=== PATIENT | female | born 1980 | race Caucasian/White ===

== ENCOUNTER → 2016-05-20 17:35 | Observation (INO) ==
--- NOTE | 2016-05-20 16:20 | OB/GYN History & Physical ---
Date of Encounter: 05/20/16 Time of Encounter: 16:15 Assessment and Plan (1) ROM (rupture of membranes), premature Current visit: Yes Status: Acute Evaluation for concern of PROM. Nitrizine (-) Ferning (-) Pooling (-) No patient perceived contractions, no pelvic pain. External TOCO: no contractions noted. External NST: reactive, HR in the 120-150's. Patient does not have rupture of membranes and is not in labor per the above evaluation. Will discharge home with routing follow-up with her primary OB. Qualifiers: PROM gestational age: -third trimester Qualified Code(s): O42.913 - premature rupture of membranes, unspecified as to length of time between rupture and onset of labor, third trimester History of Present Illness Chief complaint: concern for fluid leakage HPI: Ms. Polanco is a 35 year old female presents by personal vehicle from [facility] with concern regarding fluid leaking. Patient is at 28w 3d. She noticed fluid leaking around her toilet 3 days ago. The recruitment specialist said it was body fluid (i.e. urine). Yesterday, she noticed her underwear was damp after urination. In speaking with her OB, Dr. Osborne, has previously mentioned monitoring for fluid leakage. The patient is concerned this could be fluid but notes it could be urine. No bleeding. No gush of fluids. No pain. She is not feeling any contractions. She has anxiety causing abdominal upsetting when driving. No fever, chills, nausea, vomiting. Last intercourse was yesterday. 35yo female 28w 3d OB: Dr. Osborne. Past Med Surg Social Fam HX - Past Medical History Medical history: no medical history Psychiatric history: other - Social History Smoking Status: Never smoker Smokeless Tobacco Status: No Alcohol use: none Drug use: none Obstetrical History - Pregnancies : 1 Para: 0 Term: 0 : 0 Ab's: 0 Livin Medications and Allergies Omeprazole 20 mg PO DAILY 03/05/16 [History] Pnv#75/Iron Fum/FA/Om3/Dha/Epa [Daily Combo Pack] 1 mg PO DAILY [History] Allergies No Known Allergies Allergy (Verified 03/05/16 21:11) Review of System OB - Constitutional Constitutional ROS IM: no chills, no fever(s), no headache(s), no malaise - Respiratory Respiratory: no cough, no dyspnea - Gastrointestinal Gastrointestinal: no constipation, no heartburn, no loose stools, no nausea, no vomiting - Genitourinary Genitourinary: no abnormal vaginal bleeding, no difficulty urinating, no flank pain, no pelvic pain, no urinary hesitancy, no urinary incontinence, no urinary urgency - Muscloskeletal Musculoskeletal: no back pain Exam - Constitutional Constitutional: well developed, well nourished, no acute distress, obese - HEENT HEENT: Normocephaly, Mucus Membranes Moist - Neck Neck exam: normal inspection, supple - Lungs Respiratory exam: CTAB - Cardiovascular Cardiovascular exam: RRR, +S1, +S2 - Abdomen Abdomen: Present: bowel sounds normal, gravid, non tender. Absent: guarding noted - Extremities Extremities exam: normal capillary refill, normal inspection Results All other labs normal.
== END | disposition home or self-care (01) ==
LOC: 1NENULAB
PROVIDERS: ADMIT Student in an Organized Health Care Education/Training Program; ATTEND Student in an Organized Health Care Education/Training Program

== ENCOUNTER → 2016-07-24 13:30 | Observation (INO) ==
[2016-07-24 12:07] LABS: Basophils % 0.4 %; Eosinophils # 0.2 K/mcL (0.0-0.6); Eosinophils % 1.4 %; Hematocrit 39.4 % (35.3-44.9); Hemoglobin 13.2 g/dL (11.5-15.4); Immature Granulocytes % 1.3 % (0-4); Immature Platelets 3.6 % (1.1-6.1); Lymphocytes # 2.1 K/mcL (0.6-4.6); Lymphocytes % 19.2 %; Mean Corpuscular HGB Conc 33.5 g/dL (31.6-35.5); Mean Corpuscular Hemoglobin 27.7 pg (28.0-33.3); Mean Corpuscular Volume 82.6 fL (83.0-100.0); Mean Platelet Volume 10.1 fL (9.4-12.4); Monocytes # 0.9 K/mcL (0.0-1.3); Neutrophils # 7.4 K/mcL (1.6-8.9); Platelet Count 306 K/mcL (140-400); Red Blood Count 4.77 M/mcL (3.82-4.97); Red Cell Distribution Width 14.6 % (11.5-14.5); Segmented Neutrophils % 69.7 %
[2016-07-24 12:20] LABS: Alanine Aminotransferase 21 Units/L (0-55); Aspartate Amino Transferase 19 Units/L (5-34); BUN/Creatinine Ratio 17 (6-26); Blood Urea Nitrogen 9 mg/dL (7-20); Lactate Dehydrogenase 148 Units/L (159-327); Uric Acid 4.7 mg/dL (2.6-6.0); eGFR For African Americans > 60 (> 60); eGFR For Non-African Americans > 60 (> 60)
[2016-07-24 12:30] VITALS: BP 137/85
--- NOTE | 2016-07-24 13:04 | Discharge Summary ---
Date of Encounter: 07/24/16 Time of Encounter: 13:04 - Discharge Diagnosis (1) 37 weeks gestation of Priority: Primary Status: Acute Comments: admitted for observation (2) Rh negative status during Priority: Secondary Status: Acute Comments: Type and screen drawn Rhogam injection given prior to discharge. Patient had not received Rhogam during . Qualifiers: Trimester: third trimester Qualified Code(s): O09.893 - Supervision of other high risk pregnancies, third trimester (3) Elevated BP without diagnosis of hypertension Priority: Secondary Status: Acute Comments: PIH labs and BP within normal limits. - Discharge Medications Home Medications: Omeprazole 20 mg PO DAILY 03/05/16 [History] Pnv#75/Iron Fum/FA/Om3/Dha/Epa [Daily Combo Pack] 1 mg PO DAILY [History] Allergies/Adverse Reactions: Allergies No Known Allergies Allergy (Verified 07/24/16 12:31) Data Procedures and tests throughout hospitalization: Laboratory Tests 07/24/16 07/24/16 11:58 11:58 WBC 10.7 RBC 4.77 Hgb 13.2 Hct 39.4 MCV 82.6 L MCH 27.7 L MCHC 33.5 RDW 14.6 H Plt Count 306 MPV 10.1 Immature Gran % 1.3 Seg Neutrophils % 69.7 Lymphocytes % 19.2 Monocytes % 8.0 Eosinophils % 1.4 Basophils % 0.4 Neutrophils # 7.4 Lymphocytes # 2.1 Monocytes # 0.9 Eosinophils # 0.2 Basophils # 0.0 Immature Plt Fraction 3.6 BUN 9 Creatinine 0.54 L Est GFR ( Amer) > 60 Est GFR (Non-Af Amer) > 60 BUN/Creatinine Ratio 17 Uric Acid 4.7 AST 19 ALT 21 Lactate Dehydrogenase 148 L Labs on day of discharge: Labs from last 24 hours 07/24/16 07/24/16 11:58 11:58 WBC 10.7 RBC 4.77 Hgb 13.2 Hct 39.4 MCV 82.6 L MCH 27.7 L MCHC 33.5 RDW 14.6 H Plt Count 306 MPV 10.1 Immature Gran % 1.3 Seg Neutrophils % 69.7 Lymphocytes % 19.2 Monocytes % 8.0 Eosinophils % 1.4 Basophils % 0.4 Neutrophils # 7.4 Lymphocytes # 2.1 Monocytes # 0.9 Eosinophils # 0.2 Basophils # 0.0 Immature Plt Fraction 3.6 BUN 9 Creatinine 0.54 L Est GFR ( Amer) > 60 Est GFR (Non-Af Amer) > 60 BUN/Creatinine Ratio 17 Uric Acid 4.7 AST 19 ALT 21 Lactate Dehydrogenase 148 L Date of admission: 07/24/16 11:39 Primary care physician: Tamiko Cordova Discharging clinician: Ana Mittal Anticipated date of discharge: 07/24/16 - Patient Status Disposition: Home, Self-Care Condition: Good Functional capacity at discharge: independent ambulation - Discharge Instructions Follow Up With: Luis Rebolledo MD [Primary Care Provider] - Machelle Osborne MD [Partnered Physician] - Additional Instructions: LABOR AND DELIVERY DISCHARGE INSTRUCTIONS Signs and Symptoms to be Reported to your Doctor Immediately: * Sudden gush, continuous or intermittent lead of fluid from vagina (note the time of gush and color of fluid) * Onset of bright red vaginal bleeding with or without pain (if you had a vaginal exam during this visit you may notice some dark red spotting. This is normal.) * Lower abdominal cramping or backache that is premenstrual-like feeling. * More than 6 contractions in one hour. * Burning during urination, having to urinate more frequently or pain in your mid-back. * A change in the baby's activity. This could be an increase or decrease in activity. * Severe headache which does not go away with tylenol. * Sudden swelling in the face, hands, arms and/or legs. * Upper abdominal pain - sometimes associated with heartburn or nausea and is not relieved by Maalox, Mylanta or Tums. * Dizziness or blurred vision or visual disturbances (seeing stars/lights). * Kick Counts One hour after a meal, lay down on one side in a quiet place. Count the number of tone the baby moves during an hour. If less than 6 movements, notify your physician. Diet: *Force fluids - 8-10 tall glasses of fluid per day. May include popsicles and jello. 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 Upon evaluation it was found patient had not received Rhogam at 28 weeks gestation. Type and screen was drawn and Rhogam given prior to discharge. NST today was reactive baseline 125 bpm. Time Attestation: Total time spent providing and/or coordinating discharge services: Time Spent: Less than 30 minutes Exam - Constitutional Vitals: Temp Pulse Resp BP 97.2 F L 71 20 137/85 07/24/16 12:15 07/24/16 12:15 07/24/16 12:15 07/24/16 12:15 General appearance IM: A&O X 3, pleasant, obese, answers questions appropriately - Respiratory Respiratory exam: Present: CTAB - Cardiovascular Cardiovascular exam IM: Present: RRR, +S1, +S2 - GI/Abdominal GI/Abdominal exam IM: normal bowel sounds - Extremities Exam Extremities exam IM: Present: full ROM, normal inspection - Neurological Exam Neurological exam: alert, oriented X3, reflexes normal - Other Additional findings: PUPPs rash noted on extremities only. - VTE Reasons for not Prescribing Prophylaxis: Treatment not Indicated - Low risk for VTE
[2016-07-24 13:28] LABS: Creatinine,Urine 23 mg/dL
[~2016-07-24 13:30] MED LIST: Rho Immune Globulin 1,500 UNIT SYRINGE IM ONE
== END | disposition home or self-care (01) ==
LOC: 1NENULAB
PROVIDERS: ADMIT Obstetrics & Gynecology; ATTEND Obstetrics & Gynecology

== ENCOUNTER 2016-08-08 05:00 | Inpatient (IN) ==
[2016-08-08] MEDS ORDERED: Famotidine 20 MG/2 ML VIAL IVP PRN (05:41)
[2016-08-08] MEDS ORDERED: Naloxone 0.4 MG/ML INJ IVP PRN (05:41)
[2016-08-08] MEDS ORDERED: Penicillin G Potassium 5,000,000 UNIT in D5% in Water (Mini-Bag+) 100 ML IVPB ONE (05:41)
[2016-08-08] MEDS ORDERED: Ondansetron 4 MG/2 ML VIAL IVP PRN (05:41)
[2016-08-08] MEDS ORDERED: Metoclopramide 10 MG/2 ML VIAL IVP PRN (05:41)
[2016-08-08] MEDS ORDERED: *HR* Nalbuphine 20 MG/ML AMPUL IVP PRN (05:44)
[2016-08-08] MEDS ORDERED: Ringers Solution, Lactated 1,000 ML IVC SCH (05:45)
[2016-08-08 06:01] LABS: Basophils % 0.4 %; Eosinophils # 0.2 K/mcL (0.0-0.6); Eosinophils % 1.7 %; Hematocrit 40.3 % (35.3-44.9); Hemoglobin 13.6 g/dL (11.5-15.4); Immature Granulocytes % 1.5 % (0-4); Immature Platelets 3.8 % (1.1-6.1); Lymphocytes # 2.2 K/mcL (0.6-4.6); Mean Corpuscular HGB Conc 33.7 g/dL (31.6-35.5); Mean Corpuscular Hemoglobin 27.8 pg (28.0-33.3); Mean Corpuscular Volume 82.2 fL (83.0-100.0); Mean Platelet Volume 9.9 fL (9.4-12.4); Monocytes # 0.8 K/mcL (0.0-1.3); Monocytes % 7.6 %; Neutrophils # 7.7 K/mcL (1.6-8.9); Platelet Count 273 K/mcL (140-400); Segmented Neutrophils % 68.8 %
[2016-08-08] MEDS ORDERED: miSOPROStol 25 MCG TABLET PO SCH (08:00)
--- NOTE | 2016-08-08 08:28 | History & Physical Report ---
Date of Encounter: 08/08/16 Time of Encounter: 08:27 24 Hour HP Update - Instructions Instructions: If the History and Physical is less than 30 days old and was completed prior to A.M. admission and or procedure and has NOT been updated on calendar day of procedure please complete this update prior to performing procedure. - Update Patient reports changes in Medical Condition: No Changes in examination, assessment, or condition: No Changes in Medication: No Preop tests/diagnostics Reviewed: Yes Surgery Remains Indicated: Yes Consent for Planned Operative Procedure(s) Verified: Yes - Pre-Operative Checklist Preoperative Checklist Indicated: No Prophylactic Antibiotic Ordered: Yes Home Medications Include Beta Sary: No Beta Sary Taken Today (Day of Surgery): No Beta Sary Taken Yesterday (Day Prior to Surgery): No Is VTE Prophylaxis Indicated?: NO
--- NOTE | 2016-08-08 08:31 | OB Labor Progress Note ---
Date of Encounter: 08/08/16 Time of Encounter: 08:29 Labor Progress Note - Subjective Subjective: The patient is comfortable with contractions. She denies any vaginal bleeding, loss of fluid. Fetus has been active. She is here for induction. A Molina for cervical ripening was discussed yesterday and planned. Patient is aware and agrees with plan of care - Vital Signs Vital Signs: Afebrile, vital signs stable - Cervix Cervix: 1-2/70/-1, mid position and soft - Heart Tones Heart Tones: 140s, CAT 1 - [place]: Contractions are regular, patient status post 50 g of oral Cytotec about 0700 - Interventions Interventions: 39 weeks 6 days IUP with advanced maternal age, uterine fibroids and obesity for induction of labor per [facility] recommendations - Plan Plan: Molina catheter with 30 mL balloon inserted and cervix without difficulty using a guidewire. Patient tolerated well. Continue induction of labor with anticipation of vaginal delivery
[2016-08-08] MEDS: Penicillin G Potassium 2,500,000 UNIT in D5% in Water 100 ML IVPB SCH ×3 (10:18→19:32)
--- NOTE | 2016-08-08 12:54 | OB Labor Progress Note ---
Date of Encounter: 08/08/16 Time of Encounter: 12:52 Labor Progress Note - Subjective Subjective: Pt comfortable with Nubain at this time. - Cervix Cervix: 4/80/-1 - Heart Tones Heart Tones: Moderate variability, +accels, occassional variable decelerations. - Saxis Saxis: mild and irregular - Interventions Interventions: AROM for small amount clear fluid. IUPC placed in anticipation of possible amnioinfusion if needed for variable decelerations. Pt repositioned to right lateral. - Plan Plan: Continue to monitor. Will start amnioinfusion if needed for variable decelerations. Will augment labor with pitocin. Epidural if requested. Anticipate . POC discussed with Dr. Osborne.
[2016-08-08] MEDS ORDERED: Oxytocin 20 units/ LR 1000 mL 20 UNIT/1,000 ML BAG IVC SCH (13:00)
[2016-08-08] MEDS ORDERED: EPHEDrine 50 MG/ML VIAL IVP PRN (18:16)
[2016-08-08] MEDS ORDERED: Ringers Solution, Lactated 500 ML IVC ONE (18:16)
[2016-08-08] MEDS ORDERED: Epidural Premix (fent/bupiv) 110 ML EP ONE (18:26)
[2016-08-08] MEDS ORDERED: Epidural Premix (fent/bupiv) 110 ML EP SCH (18:30)
--- NOTE | 2016-08-08 19:28 | Anesthesia Evaluation PreOp ---
Date of Encounter: 08/08/16 Time of Encounter: 19:26 - Past History Planned Operation: SUSIE Cardiac History: Denies any Significant Hx Pulmonary History: Denies Any Significant HX BAG TESTER History: Other (Bipolar, OCD) Other Medical History: Denies Any Significant HX Anesthesia History: No Prior Anesthetic Complications Alcohol Use: none Drug use: none Medications and Allergies Omeprazole 20 mg PO DAILY 03/05/16 [History] Pnv#75/Iron Fum/FA/Om3/Dha/Epa [Daily Combo Pack] 1 mg PO DAILY [History] Allergies No Known Allergies Allergy (Verified 08/08/16 05:40) - Meds/Allergy Pre-op Review Medications Reviewed: Yes Allergies Reviewed: Yes Beta Blockers on Current Med List: No Anesthesia Results - Labs 08/08/16 05:46 Anesthesia Exam Height: 5'5" Weight: 113 kg NPO (# of Hours): 6 Pain Scale: 8 Pain Scale Used: Numeric (1 - 10) - HEENT Pupil (Motor): Pupils equal Mallampati: III Teeth: Normal Oral Opening: Greater than 3 - BAG TESTER LOC: Oriented BAG TESTER Motor: Normal RUE, Normal LUE, Normal RLE, Normal LLE, Normal Face BAG TESTER Sensory: Normal: RUE, LUE, RLE, LLE, Face - Cardiac Rhythm: Regular Murmur: None JVD: No Carotid Bruit: No - Pulmonary Breath Sounds: bilateral Clear Respiratory Effort: Symmetrical Anesthesia Assess/Plan ASA Score: 3 (M.O BMI 41.7) Modified Vidya Scale for Level of Consciousness: Cooperative, oriented, and tranquil Anesthetic Plan: General (plan b), Regional (plan a) Autologous Blood: Yes Monitoring Plan: Standard Monitors
--- NOTE | 2016-08-08 19:30 | Anesthesia Procedures ---
Date of Encounter: 08/08/16 Time of Encounter: 19:28 Procedures: Anesthesia - Epidural/Spinal Patient ID/Chart reviewed: Yes Patient examined: Yes OB Eval: Gestational age: 39.6 OB Eval: : 1 OB Eval: Hx Para: 0 OB Eval: Dilated at (cm): 4 OB Eval: Contractions: Non-stressed pattern Consent Obtained: Yes Supplemental Oxygen: None/Room Air Site Prep: Aseptic Technique, Sterile prep and drape, Povidone-Iodine 1% Patient position: upright Local Anesthetic: Lidocaine 1% Amount of Local Anesthetic used: 3 Touhy Needle Gauge: 18 Touhy Needle Depth (cm): 9 Catheter Depth at Skin (cm): 18 Test Dose (1.5% Lido + Epi): Volume given (mls): 5 Test Dose Result: Negative Loading Dose: Other: 5ml of epidural premix pharm bag solution Loading Dose Administered: Thru Catheter Infusion Med: 0.125% Bupivacaine w/ 2 mcg/ml Fentanyl Infusion Rate (mls/hr): 12 ([id number] [id number]) Catheter Secured in Place: Tegaderm, Tape Interspace Used: L3-L4 Loss of Resistance (ALISON): Yes Blood: No CSF: No Paresthesia: No Procedure: pt tolerated procedure well. no complications. vss. 143/65 hr 91 148/71 hr 92 fhr stable
--- NOTE | 2016-08-08 19:36 | OB Labor Progress Note ---
Date of Encounter: 08/08/16 Time of Encounter: 19:32 Labor Progress Note - Subjective Subjective: The patient is comfortable after her epidural - Vital Signs Vital Signs: Afebrile, vital signs stable - Cervix Cervix: 5-6/80/-1, vertex - Heart Tones Heart Tones: 130s baseline, CAT1 - [place]: Contractions every 3-4 minutes x 30-50mmHg on 5 mU pit - Interventions Interventions: 39 week 6 day IUP, AMA, uterine fibroids, obesity for induction of labor, status post epidural - Plan Plan: Continue current management, anticipate vaginal delivery
[2016-08-08] MEDS ORDERED: *HR* FentaNYL (PF) 100 MCG/2 ML VIAL ONE (20:11)
[2016-08-08] MEDS ORDERED: Lidocaine -MPF 2% 5 ML VIAL ONE (20:12)
--- NOTE | 2016-08-08 20:17 | Anesthesia Progress Note ---
Date of Encounter: 08/08/16 Time of Encounter: 20:16 Anesthesia Note - Note Note: 08/08/16 20:16 called for increased pain during contractions. bolus given of 100mcg fentanyl, with 2%lidocaine with epi. vss. fhr stable. pump increased to 15ml/hr
[2016-08-08] MEDS ORDERED: ceFAZolin 3,000 MG in D5% in Water 100 ML IVPB ONE (21:51)
[2016-08-08] MEDS ORDERED: Lidocaine/EPI 1:200k 2% PF 20 ML VIAL ONE (21:52)
[2016-08-08] MEDS ORDERED: Chloroprocaine/PF 20 ML VIAL INFILT ONE (21:52)
[2016-08-08] MEDS ORDERED: MetroNIDAZOLE 500 MG/100 ML 500 MG/100 ML BAG IVPB STA (21:55)
[2016-08-08] MEDS ORDERED: *HR* Morphine Sulfate/PF 5 MG/10 ML AMPUL ONE (22:24)
[2016-08-08] MEDS ORDERED: Ondansetron 4 MG/2 ML VIAL ONE (22:33)
[2016-08-08] MEDS ORDERED: Ringers Solution, Lactated 1,000 ML ONE (22:51)
--- NOTE | 2016-08-08 23:25 | OB Labor Progress Note ---
Date of Encounter: 08/08/16 Time of Encounter: 21:50 Labor Progress Note - Subjective Subjective: Patient comfortable with epidural. Noted to have variable decelerations. Internals placed and decelerations appeared to be late. - Vital Signs Vital Signs: Afebrile, vital signs stable - Cervix Cervix: 6/80/-1 - Heart Tones Heart Tones: Category 2 with late deceleration, not persistent - [place]: Contractions every 3-4 minutes on 5 milliunits of pit 30-50 mmHg. Pitocin stopped after late deceleration noted - Interventions Interventions: 39 week 6 day IUP for induction of labor due to AMA, obesity, uterine fibroids, [place] 5.8, grade 2-3 placenta with category 2 heart rate tracing and failure to progress with arrest at 6 cm - Plan Plan: Discussed findings with patient. Recommended proceeding to primary section. Patient gave informed consent after risks and benefits were reviewed
--- NOTE | 2016-08-08 23:35 | OB/GYN Procedure Note ---
Section - Date of procedure: 08/08/16 Preop diagnosis: arrest of dilation (6cm), category 2 FHT tracing, other ( Uterine fibroids) Post-op diagnosis: same (OP) Procedure: section, primary low transverse Surgeon: Machelle Osborne Estimated blood loss (cc): 500 Anesthesiologist: Yoni Arriola Web Development Director: Rashawn Longo Anesthesia Type: Epidural section complications: none Disposition: L&D Recovery Room Specimens: Placenta, Cord segment, Cord blood - (s) Infant A Infant Delivery Date: 08/08/16 Infant Delivery Time: 22:22 Presentation: vertex Position: LOP Route of delivery: other Gender: Female Viability: Viable Pounds: 7 Ounces: 4 at 1 minute: 8 at 5 minutes: 8 Specimens collected: cord blood Placenta: spontaneous, uterine exploration Cord: 3 umbilical vessels, other (Cord around ankle) - Narrative Narrative: Patient was taken to the operating room and prepped and draped in usual sterile fashion. EPCDs were placed. Timeout was completed. Anesthesia was tested to be adequate. A Pfannenstiel skin incision was made with a scalpel and sharply dissected down to the fascia. The fascia was incised in the midline and extended bilaterally with scissors. 2 straight [place] clamps were placed on the inferior fascial edge and the fascia was bluntly and sharply dissected away from the rectus muscles. This was repeated superiorly. The rectus muscles were then bluntly and sharply bissected in the midline. Peritoneum was bluntlyly entered and extended superiorly and inferiorly. Bladder blade was placed to protect the bladder. Vesicouterine peritoneum was incised and reflected inferiorly. Bladder blade was replaced to protect the bladder. A low transverse incision was then made with a scalpel and sharply dissected down to the amnion. This was then bluntly extended bilaterally. The amnion was then bluntly entered. This was followed by the vertex delivery of a vigorous female infant weighing 7#4oz, with Apgars of 8 at 1 minute and 8 at 5 minutes. The was suctioned on the operating field, cord was clamped and cut after a delay, and the infant was handed to the nursery care team. Placenta was spontaneously extracted intact. Uterine cavity was digitally inspected and then wiped clean with a moist lap sponge. Clamps were placed on the uterine angles and the uterine incision was closed using 0 Vicryl suture in a running locking fashion. A second imbricating layer completed the uterine closure. Good hemostasis was achieved this time by placing uvinzp-ah-hadei sutures using 0 Vicryl in the midline. Gloves were changed. Tubes and ovaries were inspected and found to be grossly normal. Subserosal fibroids were noted both anteriorly and posteriorly. The largest being about 2 cm in diameter and 4 cm in length. The abdomen was irrigated copiously with sterile water. Peritoneal edges and rectus muscles were inspected and hemostasis achieved. The fascia was then closed using an 0 PDS loop in a running, nonlocking fashion. Subcutaneous tissue was irrigated with sterile water and good hemostasis was achieved. Skin was closed with 4-0 Monocryl in a subcuticular fashion. All sponge and instrument counts were correct at the end of the procedure. The Molina was noted to be draining clear yellow urine at the end of the procedure. The patient was taken to the recovery room in stable condition.
[2016-08-08] MEDS ORDERED: *HR* HYDROmorphone (PF) 1 MG/ML SYRINGE IVP PRN ×2 (23:41→23:45)
[2016-08-08] MEDS ORDERED: *HR* Morphine 2 MG/ML SYRINGE IVP PRN (23:45)
--- NOTE | 2016-08-08 23:45 | Anesthesia Evaluation Post Op ---
Date of Encounter: 08/08/16 Time of Encounter: 23:45 - Lungs Lungs: Clear Ascult./Percussion - Airway Airway: Non-obstructed - Cardiovascular Regular Rate, Baseline Rhythm - Mental Status Mental Status: Alert & Oriented, Answers Appropriately - Pain Pain Scale: 3 ("mild discomfort") Pain Scale used: Numeric (1 - 10) - Nausea Vomiting Nausea Vomiting: Not Present - Hydration Hydration: NPO, Molina catheter - Discharge PostOp Status: Transfer Patient to floor
[2016-08-09] MEDS ORDERED: *HR* OxyCODONE/APAP 5/325 TABLET PO PRN (01:34)
[2016-08-09] MEDS ORDERED: Ondansetron 4 MG/2 ML VIAL IVP PRN (01:34)
[2016-08-09] MEDS ORDERED: Sennosides 8.6 MG TABLET PO PRN (01:34)
[2016-08-09] MEDS ORDERED: Metoclopramide 10 MG/2 ML VIAL IVP PRN (01:34)
[2016-08-09] MEDS ORDERED: Rho Immune Globulin 1,500 UNIT SYRINGE IM ONE (01:34)
[2016-08-09] MEDS ORDERED: Oxytocin 20 units/ LR 1000 mL 20 UNIT/1,000 ML BAG IVC SCH (01:34)
[2016-08-09] MEDS ORDERED: Simethicone 80 MG TAB.CHEW PO PRN (01:34)
[2016-08-09 04:41] LABS: Basophils % 0.2 %; Eosinophils # 0.1 K/mcL (0.0-0.6); Eosinophils % 0.4 %; Hematocrit 33.4 % (35.3-44.9); Immature Granulocytes % 0.7 % (0-4); Lymphocytes # 1.7 K/mcL (0.6-4.6); Lymphocytes % 12.6 %; Mean Corpuscular HGB Conc 32.6 g/dL (31.6-35.5); Mean Corpuscular Hemoglobin 27.1 pg (28.0-33.3); Mean Corpuscular Volume 83.1 fL (83.0-100.0); Mean Platelet Volume 9.9 fL (9.4-12.4); Monocytes # 0.8 K/mcL (0.0-1.3); Monocytes % 5.7 %; Platelet Count 221 K/mcL (140-400); Red Blood Count 4.02 M/mcL (3.82-4.97); Red Cell Distribution Width 14.8 % (11.5-14.5); Segmented Neutrophils % 80.4 %
[2016-08-09 04:44] LABS: Hemoglobin 10.9 g/dL (11.5-15.4)
[2016-08-09] MEDS: Ibuprofen 600 MG TABLET PO PRN ×2 (08:11→22:35)
[2016-08-09] MEDS: Prenatal Vit/FA 1 EACH TABLET PO SCH (08:11)
--- NOTE | 2016-08-09 10:47 | OB/GYN Progress Note ---
Date of Encounter: 08/09/16 Time of Encounter: 10:43 - Assessment and Plan (1) delivery delivered Current Visit: Yes Status: Acute Stable POD #1 Continue current management plan Anticipate DC Saturday Subjective - Subjective Patient reports: appetite normal, pain well controlled, other (jeff in place. ) Powell: doing well, nursing well Objective - Vital Signs Latest vital signs: Vital Signs Temp Pulse Resp BP Pulse Ox 08/09/16 08:10 98.2 F 90 16 103/73 08/09/16 04:45 98.2 F 84 16 122/70 96 08/09/16 03:30 97.7 F 86 18 111/62 95 08/09/16 02:30 97.5 F L 79 16 119/70 98 08/09/16 02:00 98.0 F 85 16 106/67 95 08/09/16 01:30 98.3 F 84 14 114/67 96 Intake and Output 08/08/16 08/09/16 08/09/16 23:59 07:59 15:59 Intake Total 240 / 240 Output Total 1025 / 1025 Balance -785 / -785 Intake: Oral 240 / 240 Output: Urine 650 / 650 Catheter 375 / 375 Other: Weight 113.1 kg Patient Weight 08/09/16 23:59 Weight 113.1 kg - Exam Lungs: bilateral: normal Chest: Normal S1, Normal S2 Extremities: Present: normal Abdomen: Present: normal appearance, soft Incision: Present: dry, dressed Uterus: Present: firm - Labs Labs: Laboratory Results - last 24 hr 08/09/16 04:17 WBC 13.7 H RBC 4.02 Hgb 10.9 L D Hct 33.4 L MCV 83.1 MCH 27.1 L MCHC 32.6 RDW 14.8 H Plt Count 221 MPV 9.9 Immature Gran % 0.7 Seg Neutrophils % 80.4 Lymphocytes % 12.6 Monocytes % 5.7 Eosinophils % 0.4 Basophils % 0.2 Neutrophils # 11.0 H Lymphocytes # 1.7 Monocytes # 0.8 Eosinophils # 0.1 Basophils # 0.0
[2016-08-10] MEDS: Ibuprofen 600 MG TABLET PO PRN (07:01)
[2016-08-10 08:14] VITALS: BP 101/64
--- NOTE | 2016-08-10 08:59 | Discharge Summary ---
Date of Encounter: 08/10/16 Time of Encounter: 08:57 - Discharge Diagnosis (1) Breast feeding status of mother Priority: Secondary Status: Acute Comments: support prn (2) delivery delivered Priority: Secondary Status: Acute Comments: Continue routine postop/ care discharge home today follow up with Dr. Osborne in 2 weeks for incision check - Discharge Medications Prescriptions: OxyCODONE/APAP 5/325 [Percocet 5/325 MG] 1 each PO Q4HR PRN #30 tablet PRN Reason: Moderate pain 4-6 Ibuprofen [Motrin] 600 mg PO Q6HR PRN #60 tablet PRN Reason: Mild To Moderate Pain Docusate [Colace] 100 mg PO BID #60 capsule Home Medications: Pnv#75/Iron Fum/FA/Om3/Dha/Epa [Daily Combo Pack] 1 mg PO DAILY [History] Docusate [Colace] 100 mg PO BID #60 capsule 08/10/16 [Rx] Ibuprofen [Motrin] 600 mg PO Q6HR PRN #60 tablet 08/10/16 [Rx] OxyCODONE/APAP 5/325 [Percocet 5/325 MG] 1 each PO Q4HR PRN #30 tablet 08/10/16 [Rx] Allergies/Adverse Reactions: Allergies No Known Allergies Allergy (Verified 08/08/16 05:40) Data Procedures and tests throughout hospitalization: Laboratory Tests 08/08/16 08/08/16 08/09/16 05:46 22:43 04:17 WBC 11.1 13.7 H RBC 4.90 4.02 Hgb 13.6 10.9 L D Hct 40.3 33.4 L MCV 82.2 L 83.1 MCH 27.8 L 27.1 L MCHC 33.7 32.6 RDW 15.0 H 14.8 H Plt Count 273 221 MPV 9.9 9.9 Immature Gran % 1.5 0.7 Seg Neutrophils % 68.8 80.4 Lymphocytes % 20.0 12.6 Monocytes % 7.6 5.7 Eosinophils % 1.7 0.4 Basophils % 0.4 0.2 Neutrophils # 7.7 11.0 H Lymphocytes # 2.2 1.7 Monocytes # 0.8 0.8 Eosinophils # 0.2 0.1 Basophils # 0.0 0.0 Immature Plt Fraction 3.8 Baby's Blood Type A RH NEGATIVE Mother's Blood Type O RH NEGATIVE Rhogam Indicated NO Labs on day of discharge: Labs from last 24 hours 08/08/16 22:43 Baby's Blood Type A RH NEGATIVE Mother's Blood Type O RH NEGATIVE Rhogam Indicated NO Date of admission: 08/08/16 05:06 Primary care physician: Tamiko Cordova Discharging clinician: Ana Mittal Anticipated date of discharge: 08/10/16 - Patient Status Disposition: Home, Self-Care Condition: Good Functional capacity at discharge: independent ambulation - Discharge Instructions Follow Up With: Luis Rebolledo MD [Primary Care Provider] - Machelle Osborne MD [Partnered Physician] - - Diet and Activity Activity: increase activity as tolerated Diet: regular diet Hospital Course Procedures: [facility] report reviewed prior to discharge Reason for admission: induction of labor Delivery: section Episiotomy: none Laceration: none Other procedures: none complications: none Discharge diagnosis: IUP at term delivered [place] baby: female (breast feeding) Time Attestation: Total time spent providing and/or coordinating discharge services: Time Spent: Less than 30 minutes - VTE Documentation of Mechanical Device: Intermittent pneumatic compression device Exam - Constitutional Vitals: Temp Pulse Resp BP Pulse Ox 98.5 F 80 16 101/64 96 08/10/16 08:13 08/10/16 08:13 08/10/16 08:13 08/10/16 08:13 08/09/16 20:22 General appearance IM: A&O X 3, pleasant, answers questions appropriately - Respiratory Respiratory exam: Present: CTAB - Cardiovascular Cardiovascular exam IM: Present: RRR, +S1, +S2 - GI/Abdominal GI/Abdominal exam IM: normal bowel sounds - Uterine Tone: Firm Uterus Position: 1 Finger Below Umbilicus, Midline - Extremities Exam Extremities exam IM: Present: full ROM, normal capillary refill, normal inspection - Neurological Exam Neurological exam: alert, oriented X3, reflexes normal
[2016-08-10] MEDS: Prenatal Vit/FA 1 EACH TABLET PO SCH (10:08)
--- NOTE | 2016-08-10 11:10 | Discharge Summary ---
Date of Encounter: 08/10/16 Time of Encounter: 11:08 - Discharge Diagnosis (1) Breast feeding status of mother Priority: Secondary Status: Acute Comments: support prn (2) delivery delivered Priority: Primary Status: Acute Comments: postop/ care discharge home today - Discharge Medications Prescriptions: OxyCODONE/APAP 5/325 [Percocet 5/325 MG] 1 each PO Q4HR PRN #30 tablet PRN Reason: Moderate pain 4-6 Ibuprofen [Motrin] 600 mg PO Q6HR PRN #60 tablet PRN Reason: Mild To Moderate Pain Docusate [Colace] 100 mg PO BID #60 capsule Home Medications: Pnv#75/Iron Fum/FA/Om3/Dha/Epa [Daily Combo Pack] 1 mg PO DAILY [History] Docusate [Colace] 100 mg PO BID #60 capsule 08/10/16 [Rx] Ibuprofen [Motrin] 600 mg PO Q6HR PRN #60 tablet 08/10/16 [Rx] OxyCODONE/APAP 5/325 [Percocet 5/325 MG] 1 each PO Q4HR PRN #30 tablet 08/10/16 [Rx] Allergies/Adverse Reactions: Allergies No Known Allergies Allergy (Verified 08/08/16 05:40) Data Procedures and tests throughout hospitalization: Laboratory Tests 08/08/16 08/08/16 08/09/16 05:46 22:43 04:17 WBC 11.1 13.7 H RBC 4.90 4.02 Hgb 13.6 10.9 L D Hct 40.3 33.4 L MCV 82.2 L 83.1 MCH 27.8 L 27.1 L MCHC 33.7 32.6 RDW 15.0 H 14.8 H Plt Count 273 221 MPV 9.9 9.9 Immature Gran % 1.5 0.7 Seg Neutrophils % 68.8 80.4 Lymphocytes % 20.0 12.6 Monocytes % 7.6 5.7 Eosinophils % 1.7 0.4 Basophils % 0.4 0.2 Neutrophils # 7.7 11.0 H Lymphocytes # 2.2 1.7 Monocytes # 0.8 0.8 Eosinophils # 0.2 0.1 Basophils # 0.0 0.0 Immature Plt Fraction 3.8 Baby's Blood Type A RH NEGATIVE Mother's Blood Type O RH NEGATIVE Rhogam Indicated NO Labs on day of discharge: Labs from last 24 hours 08/08/16 22:43 Baby's Blood Type A RH NEGATIVE Mother's Blood Type O RH NEGATIVE Rhogam Indicated NO Date of admission: 08/08/16 05:06 Primary care physician: Tamiko Cordova Consults: 08/10/16 09:45 Consult to Striker [facility] (W&C) [CONS] Stat Reason For Exam: Reason for SW Consult: Patient requesting Discharging clinician: Ana Mittal Anticipated date of discharge: 08/10/16 - Patient Status Disposition: Home, Self-Care Condition: Good - Discharge Instructions Follow Up With: Machelle Osborne MD [Partnered Physician] - Luis Rebolledo MD [Primary Care Provider] - Additional Instructions: Perineal Care: Always wipe front to back Change your pad frequently Use your naomie bottle with warm water and spray front to back Do not douche, use tampons, have sexual intercourse or put anything in your vagina for 4-6 weeks after delivery Bleeding: Vaginal bleeding can last up to 6 weeks Your menstrual period may return as early as 6 weeks after you are discharged from the hospital [place]/Stitches Care: Vaginal Delivery Vaginal stitches will dissolve within 4-6 weeks Follow perineal care instructions Care Stitches will dissolve on their own If you have little, they will need to be removed in the doctors office within 5-7 days. You may shower with stitches or little Drip plan or soapy water over the incision to clean. Pat dry gently with a clean towel. Make sure you completely dry under the skin folds DO NOT USE powders, lotions, rubbing alcohol or hydrogen peroxide on or around your incision. This will slow your wound healing It is normal to have soreness, burning, tingling, itchiness and/or numbness as your incision heals Activity: Rest frequently Do not lift anything heavier than a gallon of milk, up to 10-15 pounds [address] for 1-2 weeks for Vaginal delivery No driving for 2-4 weeks for delivery Take stairs slowly, one at a time Gradually increase your daily activity until you are back to your normal routine Do not exercise until you have had your follow-up appointment Bathing: Take a shower daily Do not take a tub bath for the first 4 weeks Diet: Drink plenty of water and fruit juices Eat a well-balanced diet with foods high in fiber such as fruits and vegetables Depression: Your hormones have a major impact on your feelings and emotions. Hormone imbalance may cause changes in your mood, creating unfamiliar thoughts and actions. Support is available to help you understand and cope with these feelings and mood changes. If you answer yes to any of the following questions, please call your health care provider: Are you having trouble sleeping? Are you feeling isolated? Have you lost your appetite? Are you having thoughts of hurting yourself or others? WARNING SIGNS: Heavy bleeding from the vagina (blood is bright red and soaks a sanitary pad in an hour or less.) Passing a blood clot larger than your fist Discharge from the vagina that has a bad odor Temperature over 100.4 F, or if you feel cold and have chills An episiotomy site that is warm, swollen or oozing. Use a mirror if needed Urination (pee) that is painful, very red and swollen or leaking fluid An incision that is painful, very red and swollen and leaking fluid An incision that has come open Breasts that are painful or full with flu like symptoms Redness, warmth or swelling in the calf of your leg Trouble breathing, dizziness, visual disturbance or faintness *Notify your health care provider immediately or go to the nearest Emergency Room if you experience any of the above signs.* To contact the nurses station 24 hours a day, For non-urgent, routine questions, please call the office at - Diet and Activity Activity: as per physical therapy Hospital Course Delivery: section Episiotomy: none Laceration: none Time Attestation: Total time spent providing and/or coordinating discharge services: - VTE Documentation of Mechanical Device: Intermittent pneumatic compression device Exam - Constitutional Vitals: Temp Pulse Resp BP Pulse Ox 98.5 F 80 16 101/64 96 08/10/16 08:13 08/10/16 08:13 08/10/16 09:00 08/10/16 08:13 08/09/16 20:22 General appearance IM: A&O X 3, pleasant, answers questions appropriately - Other Additional findings: Patient was seen by social staff worker and found to have good family support and would like to be discharged home. Discussed patient with Dr. Ramey who agrees patient may be discharged home today.
== END 2016-08-10 12:05 | disposition home or self-care (01) | DRG 765 ==
LOC: 1NENULAB 05:06 → 1NENUOBS 08-09 01:34
PROVIDERS: ADMIT Obstetrics & Gynecology; ATTEND Obstetrics & Gynecology

== ENCOUNTER 2020-09-08 02:47 | Inpatient (IN) ==
[2020-09-08 05:28] LABS: Adenovirus Not Detected (Not Detect); Bordetella Pertussis Not Detected (Not Detect); Chlamydophila pneumoniae Not Detected (Not Detect); Coronavirus 229E Not Detected (Not Detect); Coronavirus HKU1 Not Detected (Not Detect); Coronavirus NL63 Not Detected (Not Detect); Coronavirus OC43 Not Detected (Not Detect); Human Metapneumovirus Not Detected (Not Detect); Human Rhinovirus/Enterovirus Not Detected (Not Detect); Influenza A Subtype 2009 H1 Not Detected (Not Detect); Influenza B Not Detected (Not Detect); Mycoplasma pneumoniae Not Detected (Not Detect); Parainfluenza Virus 1 Not Detected (Not Detect); Parainfluenza Virus 2 Not Detected (Not Detect); Parainfluenza Virus 3 Not Detected (Not Detect); Parainfluenza Virus 4 Not Detected (Not Detect); Respiratory Syncytial Virus Not Detected (Not Detect); SARS-CoV-2 Not Detected (Not Detect)
[2020-09-08] MEDS ORDERED: hydrOXYzine pamoate 25 MG CAPSULE PO PRN ×2 (05:41→11:56)
[2020-09-08] MEDS ORDERED: Ibuprofen 400 MG TABLET PO PRN (06:00)
[2020-09-08] MEDS ORDERED: MOM Conc 10 ML UD.LIQ PO PRN (11:42)
[2020-09-08] MEDS ORDERED: Mag Hydrox/Al Hydrox/Simeth 30 ML UDC PO PRN (11:42)
[2020-09-08] MEDS ORDERED: traZODone 50 MG TABLET PO PRN (11:42)
[2020-09-08] MEDS ORDERED: *HR* LORazepam 1 MG TABLET PO PRN (11:42)
[2020-09-08] MEDS ORDERED: haloperidoL 5 MG TABLET PO PRN (11:42)
[2020-09-08] MEDS ORDERED: Haloperidol Lactate 5 MG/ML VIAL IM PRN (11:42)
[2020-09-08] MEDS ORDERED: *HR* LORazepam 2 MG/ML VIAL IM PRN (11:42)
[2020-09-08] MEDS: risperiDONE 1 MG TABLET PO SCH ×2 (12:44→20:52)
[2020-09-08] MEDS ORDERED: Topiramate 100 MG TABLET PO SCH (21:00)
[2020-09-09] MEDS: risperiDONE 1 MG TABLET PO SCH (08:53)
[2020-09-09] MEDS ORDERED: Magnesium Oxide 400 MG TABLET PO SCH (09:00)
[2020-09-09] MEDS ORDERED: NIACIN 250 MG PO SCH (09:00)
[2020-09-09 09:41] VITALS: BP 113/81; PULSE 99; TEMP 97.2; O2SAT 96
== END 2020-09-09 16:55 | disposition home or self-care (01) | DRG 885 ==
LOC: EMEROOARM 02:47 → 1ANU 05:40
PROVIDERS: ADMIT Psychiatry & Neurology Psychiatry; ATTEND Psychiatry & Neurology Psychiatry

== ENCOUNTER 2020-09-21 12:34 | Inpatient (IN) ==
[2020-09-21 16:25] LABS: Influenza A PCR Negative (Negative); Influenza B PCR Negative (Negative); Resp. Syncytial Virus PCR Negative (Negative)
[2020-09-21 16:31] LABS: SARS-CoV-2 by PCR (In House) Negative (Negative)
[2020-09-21] MEDS: Topiramate 100 MG TABLET PO SCH (20:18)
[2020-09-21] MEDS: hydrOXYzine pamoate 25 MG CAPSULE PO PRN (20:18)
[2020-09-21] MEDS: risperiDONE 1 MG TABLET PO SCH (20:18)
[2020-09-21] MEDS: traZODone 50 MG TABLET PO PRN (20:18)
[2020-09-22] MEDS: risperiDONE 1 MG TABLET PO SCH ×2 (09:11→20:55)
[2020-09-22] MEDS ORDERED: haloperidoL 5 MG TABLET PO PRN (14:50)
[2020-09-22] MEDS ORDERED: Haloperidol Lactate 5 MG/ML VIAL IM PRN (14:50)
[2020-09-22] MEDS ORDERED: MOM Conc 10 ML UD.LIQ PO PRN (14:50)
[2020-09-22] MEDS ORDERED: Mag Hydrox/Al Hydrox/Simeth 30 ML UDC PO PRN (14:50)
[2020-09-22] MEDS ORDERED: Fluticasone Propionate Nasal 50 MCG/SPRAY BOTTLE NS PRN (14:50)
[2020-09-22] MEDS ORDERED: *HR* LORazepam 1 MG TABLET PO PRN (14:50)
[2020-09-22] MEDS ORDERED: *HR* LORazepam 2 MG/ML VIAL IM PRN (14:50)
[2020-09-22] MEDS: Topiramate 100 MG TABLET PO SCH (20:55)
[2020-09-22] MEDS: traZODone 50 MG TABLET PO PRN (20:55)
[2020-09-23] MEDS: Niacin (24 HR) 500 MG TAB.ER.24H PO SCH (08:55)
[2020-09-23] MEDS: Magnesium Oxide 400 MG TABLET PO SCH (08:56)
[2020-09-23] MEDS: risperiDONE 1 MG TABLET PO SCH ×2 (08:56→21:07)
[2020-09-23] MEDS: Multivit/Ca/Min/Fe/FA 1 TAB TABLET PO SCH (08:56)
[2020-09-23] MEDS: Topiramate 100 MG TABLET PO SCH (21:07)
[2020-09-23] MEDS: hydrOXYzine pamoate 25 MG CAPSULE PO PRN (21:07)
[2020-09-24] MEDS: Magnesium Oxide 400 MG TABLET PO SCH (08:06)
[2020-09-24] MEDS: Niacin (24 HR) 500 MG TAB.ER.24H PO SCH (08:06)
[2020-09-24] MEDS: risperiDONE 1 MG TABLET PO SCH ×2 (08:06→20:17)
[2020-09-24] MEDS: Multivit/Ca/Min/Fe/FA 1 TAB TABLET PO SCH (08:07)
[2020-09-24] MEDS: hydrOXYzine pamoate 25 MG CAPSULE PO PRN (18:52)
[2020-09-24] MEDS: Topiramate 100 MG TABLET PO SCH (20:17)
[2020-09-24] MEDS: Ibuprofen 400 MG TABLET PO PRN (20:17)
[2020-09-25] MEDS: Niacin (24 HR) 500 MG TAB.ER.24H PO SCH (08:51)
[2020-09-25] MEDS: Multivit/Ca/Min/Fe/FA 1 TAB TABLET PO SCH (08:52)
[2020-09-25] MEDS: Magnesium Oxide 400 MG TABLET PO SCH (08:52)
[2020-09-25] MEDS: risperiDONE 1 MG TABLET PO SCH ×2 (08:52→21:25)
[2020-09-25] MEDS: Topiramate 100 MG TABLET PO SCH (21:25)
[2020-09-25] MEDS: Ibuprofen 400 MG TABLET PO PRN (21:25)
[2020-09-26] MEDS: Magnesium Oxide 400 MG TABLET PO SCH (08:38)
[2020-09-26] MEDS: Niacin (24 HR) 500 MG TAB.ER.24H PO SCH (08:39)
[2020-09-26] MEDS: risperiDONE 1 MG TABLET PO SCH ×2 (08:39→20:47)
[2020-09-26] MEDS: Multivit/Ca/Min/Fe/FA 1 TAB TABLET PO SCH (08:39)
[2020-09-26] MEDS: Ibuprofen 400 MG TABLET PO PRN ×2 (14:36→20:47)
[2020-09-26] MEDS: hydrOXYzine pamoate 25 MG CAPSULE PO PRN (20:47)
[2020-09-26] MEDS: Topiramate 100 MG TABLET PO SCH (20:47)
[2020-09-26] MEDS: traZODone 50 MG TABLET PO PRN (21:29)
[2020-09-27] MEDS: Niacin (24 HR) 500 MG TAB.ER.24H PO SCH (09:08)
[2020-09-27] MEDS: Magnesium Oxide 400 MG TABLET PO SCH (09:08)
[2020-09-27] MEDS: risperiDONE 1 MG TABLET PO SCH ×2 (09:08→20:44)
[2020-09-27] MEDS: Multivit/Ca/Min/Fe/FA 1 TAB TABLET PO SCH (09:08)
[2020-09-27] MEDS: Topiramate 100 MG TABLET PO SCH (20:44)
[2020-09-27] MEDS: hydrOXYzine pamoate 25 MG CAPSULE PO PRN (20:44)
[2020-09-28] MEDS: Magnesium Oxide 400 MG TABLET PO SCH (09:12)
[2020-09-28] MEDS: risperiDONE 1 MG TABLET PO SCH ×2 (09:12→20:25)
[2020-09-28] MEDS: Niacin (24 HR) 500 MG TAB.ER.24H PO SCH (09:12)
[2020-09-28] MEDS: Multivit/Ca/Min/Fe/FA 1 TAB TABLET PO SCH (09:12)
[2020-09-28] MEDS: hydrOXYzine pamoate 25 MG CAPSULE PO PRN (20:25)
[2020-09-28] MEDS: Topiramate 100 MG TABLET PO SCH (20:25)
[2020-09-28] MEDS: Ibuprofen 400 MG TABLET PO PRN (20:25)
[2020-09-29] MEDS: Niacin (24 HR) 500 MG TAB.ER.24H PO SCH (08:49)
[2020-09-29] MEDS: Multivit/Ca/Min/Fe/FA 1 TAB TABLET PO SCH (08:49)
[2020-09-29] MEDS: Magnesium Oxide 400 MG TABLET PO SCH (08:49)
[2020-09-29] MEDS: risperiDONE 1 MG TABLET PO SCH ×2 (08:49→20:54)
[2020-09-29 09:08] VITALS: PULSE 88
[2020-09-29] MEDS: Topiramate 100 MG TABLET PO SCH (20:54)
[2020-09-30 08:02] VITALS: BP 122/87; TEMP 97.6; O2SAT 14
[2020-09-30] MEDS: Magnesium Oxide 400 MG TABLET PO SCH (08:14)
[2020-09-30] MEDS: risperiDONE 1 MG TABLET PO SCH (08:15)
[2020-09-30] MEDS: Multivit/Ca/Min/Fe/FA 1 TAB TABLET PO SCH (08:15)
[2020-09-30] MEDS: Niacin (24 HR) 500 MG TAB.ER.24H PO SCH (08:15)
== END 2020-09-30 14:05 | disposition home or self-care (01) | DRG 885 ==
LOC: EMEROOARM 12:34 → 1ANU 17:05
PROVIDERS: ADMIT Psychiatry & Neurology Psychiatry; ATTEND Psychiatry & Neurology Psychiatry

== ENCOUNTER 2020-11-05 11:12 | Inpatient (IN) ==
[2020-11-05 12:16] LABS: Basophils % 0.6 %; Eosinophils # 0.1 K/mcL (0.0-0.6); Eosinophils % 1.7 %; Hematocrit 42.2 % (35.3-44.9); Immature Granulocytes % 0.7 % (0-4); Lymphocytes # 2.2 K/mcL (0.6-4.6); Lymphocytes % 30.7 %; Mean Corpuscular HGB Conc 33.2 g/dL (31.6-35.5); Mean Corpuscular Volume 87.4 fL (83.0-100.0); Monocytes # 0.6 K/mcL (0.0-1.3); Neutrophils # 4.2 K/mcL (1.6-8.9); Platelet Count 285 K/mcL (140-400); Red Blood Count 4.83 M/mcL (3.82-4.97); Red Cell Distribution Width 12.5 % (11.5-14.5); Segmented Neutrophils % 58.3 %; White Blood Count 7.2 K/mcL (4.3-11.1)
[2020-11-05 12:39] LABS: Acetaminophen < 10 mcg/mL (10-20); BUN/Creatinine Ratio 21 (6-26); Blood Urea Nitrogen 15 mg/dL (6-20); Calcium 9.3 mg/dL (8.6-10.3); Carbon Dioxide 20 mEq/L (23-29); Chloride 108 mEq/L (98-107); Ethanol < 10 mg/dL (Less than 10); Glucose 86 mg/dL (70-105); Osmolality,Calculated 284 (280-300); Potassium 3.9 mEq/L (3.5-5.1); Salicylate < 2.5 mg/dL (15.0-30.0); Sodium 137 mEq/L (136-145); eGFR For African Americans > 60 (> 60); eGFR For Non-African Americans > 60 (> 60)
[2020-11-05 12:56] LABS: Amphetamine Screen,Urine Negative ng/mL (Cutoff=1000); Barbiturate Screen,Urine Negative ng/mL (Cutoff=200); Benzodiazepines Screen,Urine Negative ng/mL (Cutoff=300); Cannabinoid Screen,Urine Negative ng/mL (Cutoff = 50); Cocaine Screen,Urine Negative ng/mL (Cutoff= 300); Opiate Screen,Urine Negative ng/mL (Cutoff=300); Phencyclidine Screen,Urine Negative ng/mL (Cutoff=25)
[2020-11-05 14:39] LABS: Bilirubin,Urine Negative (Negative); Blood,Urine Negative (Negative); Clarity,Urine Clear (Clear); Color,Urine Light-Yellow (Yellow); Glucose,Urine (UA) Normal (Normal); Ketones,Urine Negative (Negative); Leukocyte Esterase,Urine Negative (Negative); Nitrite,Urine Negative (Negative); Protein,Urine Negative (Neg-Trace); Specific Gravity,Urine 1.022 (1.010-1.025); Urobilinogen,Urine Normal (Normal)
[2020-11-05 15:31] LABS: Influenza A PCR Negative (Negative); Influenza B PCR Negative (Negative); Resp. Syncytial Virus PCR Negative (Negative)
[2020-11-05 15:32] LABS: SARS-CoV-2 by PCR (In House) Negative (Negative)
[2020-11-05] MEDS ORDERED: haloperidoL 5 MG TABLET PO PRN (16:28)
[2020-11-05] MEDS ORDERED: Haloperidol Lactate 5 MG/ML VIAL IM PRN (16:28)
[2020-11-05] MEDS ORDERED: hydrOXYzine pamoate 25 MG CAPSULE PO PRN (16:28)
[2020-11-05] MEDS ORDERED: *HR* LORazepam 1 MG TABLET PO PRN (16:28)
[2020-11-05] MEDS ORDERED: *HR* LORazepam 2 MG/ML VIAL IM PRN (16:28)
[2020-11-05] MEDS: Topiramate 100 MG TABLET PO SCH (20:53)
[2020-11-05] MEDS: Acetaminophen 325 MG TABLET PO PRN (20:53)
[2020-11-05] MEDS: risperiDONE 1 MG TABLET PO SCH (20:53)
[2020-11-05] MEDS: traZODone 50 MG TABLET PO PRN (20:53)
[2020-11-06] MEDS: risperiDONE 1 MG TABLET PO SCH ×2 (09:05→20:35)
[2020-11-06] MEDS ORDERED: Mag Hydrox/Al Hydrox/Simeth 30 ML UDC PO PRN (10:51)
[2020-11-06] MEDS: Topiramate 100 MG TABLET PO SCH (20:35)
[2020-11-06] MEDS: Acetaminophen 325 MG TABLET PO PRN (20:36)
[2020-11-06] MEDS: hydrOXYzine pamoate 25 MG CAPSULE PO PRN (20:36)
[2020-11-06] MEDS: traZODone 50 MG TABLET PO PRN (20:36)
[2020-11-06] MEDS ORDERED: MOM Conc 10 ML UD.LIQ PO PRN (21:00)
[2020-11-07] MEDS: Acetaminophen 325 MG TABLET PO PRN ×3 (06:47→20:58)
[2020-11-07] MEDS: Magnesium Oxide 400 MG TABLET PO SCH (08:24)
[2020-11-07] MEDS: Multivit/Ca/Min/Fe/FA 1 TAB TABLET PO SCH (08:24)
[2020-11-07] MEDS: risperiDONE 1 MG TABLET PO SCH ×2 (08:24→20:59)
[2020-11-07] MEDS: traZODone 50 MG TABLET PO PRN (20:59)
[2020-11-07] MEDS: Topiramate 100 MG TABLET PO SCH (20:59)
[2020-11-07] MEDS: hydrOXYzine pamoate 25 MG CAPSULE PO PRN (20:59)
[2020-11-08 00:40] VITALS: BP 127/80
[2020-11-08] MEDS: risperiDONE 1 MG TABLET PO SCH (07:57)
[2020-11-08] MEDS: Multivit/Ca/Min/Fe/FA 1 TAB TABLET PO SCH (07:57)
[2020-11-08] MEDS: Magnesium Oxide 400 MG TABLET PO SCH (07:57)
[2020-11-08 09:13] VITALS: PULSE 83; TEMP 98.2; O2SAT 85
== END 2020-11-08 12:15 | disposition home or self-care (01) | DRG 885 ==
LOC: EMEROOARM 11:12 → 1ANU 16:21
PROVIDERS: ADMIT Psychiatry & Neurology Psychiatry; ATTEND Psychiatry & Neurology Psychiatry